=== PATIENT | male | born 1970 | race Caucasian/White ===

== ENCOUNTER → 2020-03-19 | Outpatient (CLI) | payer OTHER ==
[~2020-03-19] MED LIST: HYDROCODON-ACE1 EAC7 PO; IBUPROFEN 800800 MG PO; ONDANSETRON HCL4 M2 PO; ULTRAM 50MG TAB50 MG PO
== END ==
LOC: M.CT 14:15
PROVIDERS: ATTEND Family Medicine
DX: Z13.6 Encounter for screening for cardiovascular disorders (principal)

== ENCOUNTER 2020-11-14 00:44 | Emergency (ER) | payer BC ==
[~2020-11-14] VITALS: Ht 172.7 cm; Wt 99.6 kg
[2020-11-14] MEDS ORDERED: OMEPRAZOLE 20 M20 M1 PO (00:55)
[2020-11-14 01:28] LABS: ABSOLUTE BASOPHILS 0.1 thou/uL (0.0-0.2); ABSOLUTE EOSINOPHILS 0.2 thou/uL (0.0-0.7); ABSOLUTE NEUTROPHILS 2.4 thou/uL (1.6-8.1); BASOPHILS 1.1 %; HEMOGLOBIN 14.9 gm/dL (14.0-18.0); NUCLEATED RBCS 0 /100WBC
[2020-11-14 01:39] LABS: ABSOLUTE MONOCYTES 0.4 thou/uL (0.0-1.2); HEMATOCRIT 42.3 % (42.0-52.0); LYMPHOCYTES 39.3 %; MCHC 35.2 g/dL (28.0-37.0); MCV 88.2 fL (80.0-100.0); MONOCYTES 8.6 %; MPV 8.1 fl. (7.2-11.1); PLATELET COUNT* 265 thou/uL (150-400); RBC 4.79 mil/uL (4.50-6.00); RDW-CV 12.8 % (10.5-14.5)
[2020-11-14 01:44] LABS: CALCIUM 8.6 mg/dL (8.5-10.1); CREATININE 1.1 mg/dL (0.6-1.3); POTASSIUM 3.7 mmol/L (3.5-5.1)
[2020-11-14 01:48] LABS: ALBUMIN 3.6 g/dL (3.4-5.0); TOTAL BILIRUBIN 0.4 mg/dL (<0.1-1.0); TOTAL PROTEIN 6.7 g/dL (6.4-8.2)
[2020-11-14 04:51] VITALS: BP 136/91
--- NOTE | 2020-11-14 10:17 | EKG ---
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 11/14/20 1017 0049 0049 Bryce Zeng MD, [facility] /EPI
--- NOTE | 2020-11-14 10:18 | EKG ---
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
== END 2020-11-14 04:51 | disposition home or self-care (01) ==
LOC: M.ERS 00:44
PROVIDERS: Emergency Medicine
DX: R07.89 Other chest pain (principal); Z20.822 Contact with and (suspected) exposure to COVID-19; Z79.899 Other long term (current) drug therapy; Z98.890 Other specified postprocedural states